=== PATIENT | female | born 1970 | race Caucasian/White ===

== ENCOUNTER 2019-04-30 12:30 | Emergency (ER) | payer SELFPAY ==
[2019-04-30 13:17] VITALS: BP 165/87
--- NOTE | 2019-04-30 13:42 | UC ---
Lower Extremity/Ankle HPI - HPI Summary HPI Summary: 48 yo with onset of left foot pain following a long drive, although the day prior she had a cramp in the foot which lasted a short while. 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 No hx of trauma. Aware of some mild foot swelling. Has taken ibuprofen 600mg the last 2 evenings without relief of pain. Has increasing pain when not weight bearing, with a throbbing sensation in the foot. - History of Current Complaint Chief Complaint: UCLowerExtremity Stated Complaint: LEFT FOOT COMPLAINT Time Seen by Provider: 04/30/19 13:07 Hx Obtained From: Patient Hx Last Menstrual Period: " ... jorden going through menopause ... " Onset/Duration: Sudden Onset, Lasting Days - 4 Severity Initially: Moderate Severity Currently: Moderate Pain Intensity: 5 Aggravating Factor(s): Standing, Ambulation Alleviating Factor(s): Rest, Elevation Able to Bear Weight: No - Risk Factors Gout Risk Factors: Negative DVT Risk Factors: Negative Septic Arthritis Risk Factor: Negative - Allergies/Home Medications Allergies/Adverse Reactions: Allergies Allergy/AdvReac Type Severity Reaction Status Date / Time No Known Allergies Allergy Verified 04/30/19 13:12 Home Medications: Home Medications Ibuprofen TAB* [Advil TAB*] 600 mg PO Q6H PRN 04/30/19 [History Confirmed ] PMH/Surg Hx/FS Hx/Imm Hx Previously Healthy: Yes - Surgical History Surgical History: Yes Surgery Procedure, Year, and Place: , 2007, [place]; Cholecystectomy, ~1995 , [place] - Family History Known Family History: Positive: Non-Contributory - Social History Occupation: Employed Full-time Lives: With Family Alcohol Use: Occasionally Substance Use Type: None Smoking Status (MU): Former Smoker Length of Time of Smoking/Using Tobacco: 1 PPD x 30 Years When Did the Patient Quit Smoking/Using Tobacco: 2013 Review of Systems All Other Systems Reviewed And Are Negative: Yes Constitutional: Positive: Negative Skin: Positive: Negative Eyes: Positive: Negative ENT: Positive: Negative Respiratory: Positive: Negative Cardiovascular: Positive: Negative Gastrointestinal: Positive: Negative Genitourinary: Positive: Negative Motor: Positive: Negative Neurovascular: Positive: Negative Musculoskeletal: Positive: Arthralgia. Negative: Calf Tenderness Neurological: Positive: Negative Psychological: Positive: Negative Is Patient Immunocompromised?: No Physical Exam Triage Information Reviewed: Yes Appearance: Well-Appearing, Pain Distress - mild to moderate Vital Signs: Initial Vital Signs Temp 98.5 F 04/30/19 13:09 Pulse 76 04/30/19 13:09 Resp 16 04/30/19 13:09 BP 165/87 04/30/19 13:09 Pulse Ox 97 04/30/19 13:09 ENT Exam: Normal ENT: Positive: Normal ENT inspection Respiratory: Positive: Lungs clear, Normal breath sounds Cardiovascular: Positive: RRR, No Murmur Musculoskeletal Exam: Other - Minimal swelling of the lateral mid to forefoot without erythema. Normal palpable PT and DP pulses with normal cap refill. TTP base of 4th and 5th metatarsals. Musculoskeletal: Positive: Strength Intact, ROM Limited @ - left mid foot, Other : - Small fissure in left forefoot plantar surface 2-3 mm without warmth, erythema, swelling. Neurological Exam: Normal Neurological: Positive: Alert, Muscle Tone Normal Psychological Exam: Normal Skin Exam: Other - small fissure left foot plantar surface as above. Diagnostics - Radiology No standard instances Radiology Interpretation Completed By: Radiologist Summary of Radiographic Findings: Patient Name: ARMIDA CASTILLO Medical Record#: [id number]. Ordering Physician: Shasha Keith MD Acct.#: [id number]. : 1970 Age: 48 Sex: F Location: [facility]. Exam Date: 04/30/19 1350 ADM Status: REG ER. Order Information: FOOT LEFT 3+ VWS. Accession Number: [id number]. CPT: 73071. Indication: Nontraumatic LEFT foot fourth and fifth metatarsal base pain. Unable to bear. weight. Comparison: No relevant prior exams available on the [facility] for comparison. Technique: AP, lateral, and oblique views LEFT foot. REPORT AND IMPRESSION: #. No fracture or radiographic findings of stress reaction. #. Normal variant os tibiale externum accessory ossicle. #. 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 #. Unremarkable soft tissue contours. . <Electronically signed by Dionte Buchanan MD in OV> 1408. Dictated By: Dionte Buchanan MD. Dictated Date/Time: 04/30/191406. Transcribed Date/Time: 04/30/191406. Copy to: CC:Shasha Keith MD; No Primary Care Phys,NOPCP. Imaging - [facility] - [facility] - [facility]. [address] [place] [address]. ph ) ph ([phone]) ph ([phone]). This report is only to be considered final once signed by the Provider(s) as displayed in the "< Electronically Signed by >" field (s). Absence of a. signature indicates the report is in a draft status and still needs to be finalized. In the event this document was created by someone other than the. signing Provider, the individual initiating the document will be listed in the "Entered by:" or "Dictated by:" cabrera. 1 of 1 Lower Extremity Course/Dx - Course Course Of Treatment: Use of CAM walker, elevation, ice, regular use of NSAID. - Differential Dx/Diagnosis Differential Diagnosis/HQI/PQRI: Sprain, Strain, Tendonitis Provider Diagnosis: Tendinitis of left foot Discharge ED - Sign-Out/Discharge Documenting (check all that apply): Patient Departure All imaging exams completed and their final reports reviewed: Yes - Discharge Plan Condition: Stable Disposition: HOME Patient Education Materials: Tendinitis (ED) Referrals: No Primary Care Phys,NOPCP [Primary Care Provider] - Additional Instructions: Your blood pressure is elevated to 165/87 today; please ensure that you have a re-evaluation of your blood pressure within the next 7 to 10 days. Use the CAM walker for foot immobilization, which should decrease the pain. Use ibuprofen 800mg up to 3 times per day for relief of pain. Follow up with your primary doctor once back in [place]. - Billing Disposition and Condition Condition: STABLE Disposition: Home
== END 2019-04-30 14:43 | disposition home or self-care (01) ==
LOC: UCCORT 12:30
DX: M77.9 Enthesopathy, unspecified (principal); M19.072 Primary osteoarthritis, left ankle and foot; Z87.891 Personal history of nicotine dependence
CPT/HCPCS: 99201; G0463